=== PATIENT | male | born 1995 | race Caucasian/White ===

== ENCOUNTER → 2021-01-09 | Outpatient (CLI) | payer OTHER ==
[~2021-01-09] MED LIST: ALLEGRA ALLERGY60 MG PO; BACTRIM 400-801 EACH PO; CLEOCIN HCL300 MG PO; DEPAKOTE ER250 MG PO; FLONASE 0.05% N16 GM; KEFLEX CAP 500500 MG PO; NORCO 5-325 TA1 EACH PO; PROVENTIL HFA6.7 GM INH; SINGULAIR10 MG PO; SUMATRIPTAN SUC25 MG PO; ZANTAC300 MG PO
== END ==
LOC: LAB 09:55
DX: D89.89 Other specified disorders involving the immune mechanism, not elsewhere classified (principal); M25.50 Pain in unspecified joint; R76.8 Other specified abnormal immunological findings in serum
CPT/HCPCS: 36415